=== PATIENT | male | born 1960 | race Caucasian/White ===

== ENCOUNTER 2020-09-18 14:29 | Outpatient (CLI) | payer BC | END 2020-09-18 14:30 | disposition home or self-care (01) | LOC: BICMRI 14:29 | PROVIDERS: ATTEND Nurse Practitioner Family | DX: M25.511 Pain in right shoulder (principal); M19.011 Primary osteoarthritis, right shoulder; M75.101 Unspecified rotator cuff tear or rupture of right shoulder, not specified as traumatic | CPT/HCPCS: 70210 ==

== ENCOUNTER 2022-06-21 18:38 | Observation (INO) | payer BC ==
[2022-06-21] MEDS ORDERED: Bisacodyl 5 MG TAB PO PRN (20:48)
[2022-06-21] MEDS ORDERED: Ondansetron ODT 4 MG TAB PO PRN (20:48)
[2022-06-21] MEDS ORDERED: Acetaminophen 325 MG TAB PO PRN (20:48)
[2022-06-21] MEDS ORDERED: Senokot S 8.6-50 MG TAB PO PRN (20:48)
[2022-06-21] MEDS ORDERED: Nitroglycerin 0.4 MG TAB (25 Tab Bottle) SL PRN (20:48)
[2022-06-21] MEDS ORDERED: Ondansetron PF 4 MG/2 ML Vial IVP PRN (20:48)
[2022-06-21] MEDS ORDERED: HYDROcodone/Acetaminophen 5/325 mg Tablet PO PRN (20:48)
[2022-06-21] MEDS ORDERED: Lisinopril 5 MG TAB PO SCH (21:00)
[2022-06-21] MEDS: Sodium Chloride 0.9% 1,000 ML IV SCH (21:14)
[2022-06-21 21:30] VITALS: BMI 24.7
[2022-06-21 22:23] LABS: Troponin I Less than 0.010 ng/mL (< 0.028)
[2022-06-22 01:28] LABS: Troponin I Less than 0.010 ng/mL (< 0.028)
[2022-06-22 05:06] LABS: Hemoglobin A1c 5.6 % (4.0-6.0)
[2022-06-22 05:09] LABS: #Eosinphils 0.3 thou/uL (0.0-0.7); #Lymphocytes 1.9 thou/uL (1.20-3.40); #Monocytes 0.3 thou/uL (0.11-0.59); #Neutrophils 2.3 thou/uL (1.40-6.50); %Basophils 0.8 % (0.0-1.0); %Eosinophils 5.3 % (0.0-10.0); %Lymphocytes 39.8 % (21.0-51.0); %Monocytes 6.9 % (0.0-10.0); %Neutrophils 47.2 % (42.0-75.0); Mean Corpuscular HGB CONC 37.3 g/dL (32.0-36.0); Mean Corpuscular Hemoglobin 33.9 pg (27.0-31.0); Mean Corpuscular Volume 90.9 fl (78.0-98.0); Platelet Count 177 10x3/uL (130-400); RBC Distribution Width 11.5 % (11.5-14.5); Red Blood Cell (RBC) Count 4.14 mill/uL (4.70-6.10); White Blood Cell (WBC) Count 4.8 10x3/uL (4.8-10.8)
[2022-06-22 05:22] LABS: Anion Gap 9 mmol/L (10-20); BUN (Urea Nitrogen) 14 mg/dL (8.4-25.7); Calc. Creatinine Clearance 86 mL/min (70-130); Calcium 8.4 mg/dL (7.8-10.44); Carbon Dioxide 25 mmol/L (22-29); Cardiac Risk 5.5 (Less than 4.5); Chloride 108 mmol/L (98-107); Cholesterol 175 mg/dl (< 200 Desired); Estimated GFR 88; Glucose 111 mg/dL (70-105); HDL Cholesterol 32 mg/dL (>60 Neg Risk); LDL Cholesterol, Calculated 118 mg/dL; Potassium 3.6 mmol/L (3.5-5.1); Sodium 138 mmol/L (136-145); Triglycerides 124 mg/dL (Less than 150)
[2022-06-22 08:17] VITALS: TEMP 97.5
[2022-06-22] MEDS ORDERED: Aspirin Chewable 81 MG TAB PO SCH (09:00)
[2022-06-22] MEDS ORDERED: Lisinopril 5 MG TAB PO SCH (09:00)
[2022-06-22 12:31] VITALS: BP 121/66
[2022-06-22] MEDS: Sodium Chloride 0.9% 1,000 ML IV SCH (15:47)
== END 2022-06-22 16:10 | disposition home or self-care (01) ==
LOC: 2SW 19:06
PROVIDERS: ADMIT Family Medicine; ATTEND Family Medicine
DX: R07.89 Other chest pain (principal); I10 Essential (primary) hypertension; I44.0 Atrioventricular block, first degree; N17.9 Acute kidney failure, unspecified; K21.9 Gastro-esophageal reflux disease without esophagitis; Z86.79 Personal history of other diseases of the circulatory system; Z79.899 Other long term (current) drug therapy; Z20.822 Contact with and (suspected) exposure to COVID-19
CPT/HCPCS: 36415; 78452; 80048; 80061; 83036; 84443; 84484; 85025; 93017; 94760; A9500; G0378; J7050; U0003; U0005